=== PATIENT | male | born 1970 | race Caucasian/White ===

== ENCOUNTER 2017-07-19 08:15 | Emergency (ER) | payer OTHER, SELFPAY ==
[2017-07-19] MEDS ORDERED: Fluorescein Opthalmic Strip ONE (08:21)
== END 2017-07-19 08:49 | disposition home or self-care (01) ==
LOC: BURERS 08:15
DX: H10.9 Unspecified conjunctivitis (principal); I10 Essential (primary) hypertension; F17.210 Nicotine dependence, cigarettes, uncomplicated
CPT/HCPCS: 99282